=== PATIENT | female | born 1980 ===

== ENCOUNTER 2018-10-01 08:21 | Outpatient (RCR) | payer OTHER ==
[~2018-10-01 08:21] MED LIST: PRED20TA6 PO
--- NOTE | 2018-10-02 08:50 | PT INITIAL EVALUATION ---
MEDICAL DIAGNOSIS: sciatica of left spine TREATMENT DIAGNOSIS: cervical and lumbar pain DATE OF ONSET: 01/29/18 SUBJECTIVE: Daphne Wright presents to physical therapy with complaints of L UE and L LE discomfort, heaviness, and swollen feels along with muscle tension in the cervical, thoracic, and lumbar spine. From her Nurse Practicer, she reported the following: "Patient reports in January of this year, she started experiencing intermittent episodes of dizziness. For a period of time, she was just managing symptoms on her own. She felt that the dizziness was related to a cervical spine problem or muscle tension to her neck. Three months ago, she decided to be treated by a chiropractor. She was having spinal adjustments and later developed numbness of her left arm and left leg. The numbness to her left arm has improved, but the numbness to her left leg has persisted. It occurs every day. Sometimes the numbness is to her left hip, sometimes to her posterior upper leg, and sometimes to her foot. The numbness moves around. Feels unbalanced when she walks. She also had a period of blurry vision in her left eye, as well as fatigue and mental fogginess (these symptoms have since resolved). She went home to [place] in April of this year. She had a multitude of tests including an MRI of her c-spine and l-spine, which did reveal some minor bulging of discs, but the doctors did not feel like this was causing the symptoms she was experiencing. She also saw a neurologist and had an MRI of her brain completed, which was normal. She also saw an orthopedic doctor. She was treated with Voltaren pills, as well as vitamin B12 pills. She has been taking both of these medications for a few months and has experienced no relief of the numbness to her left leg. Denies any pain. She does feel like she has some continued muscle tension to her neck. No injury or trauma. No falls." Furthermore, she reports that she was prescribed prednisone with no changes. She reports that the pain/numbness is worse with standing and walking. She reports that the pain/numbness is better with sitting, bending, and lying. She was instructed by a physician in [place] that she should never perform any extension based exercises based on the CT and MRI's. She denies any pain with coughing, sneezing, or straining. Pain location is L3-5, L posterior hip, anterior groin, anterior/lateral/posterior thigh pain and described as numbness, and strain. REHAB PROBLEM LIST: Increased Pain Decreased ROM Decreased Strength Decreased Endurance Decreased Balance Decreased Function Decreased ADL's Decreased Mobility PREVIOUS MEDICAL HISTORY: See EMR OCCUPATION: OBJECTIVE: Posture: She demonstrated forward head, increased thoracic kyphosis, and decreased lumbar lordosis. ROM: Trunk AROM: flexion: NIL with pain end feel. extension: minimal restriction with pain end feel. side gliding R: minimal restriction with pain end feel. side gliding L: NIL with normal end feel. We will look at the cervical spine in the next session. Strength: L hip flexion, L hip abduction, L knee flexion, L ankle DF, and L ankle PF: 4/5 with no pain. R hip flexion, abduction, extension, B quad, R knee flexion: 5/5 with no pain. Palpation: TTP:L3-5, L posterior hip, anterior groin, anterior/lateral/posterior thigh pain We will look at the cervical spine in the next session Sensation: L2-S1 reduced on the L side versus the R side. C2-T1 reduce on the L side versus the R side. Special Tests: Repeated extension: increased pain during the test and better following the test with increased AROM as well; however, they were apprehensive to perform this exercise at home even though the results were great; therefore, we sent her home with increased flexion to see if it will expose a posterior derangement, which I am anticipating it is. Mobility: Independent Gait: She demonstrates normal gait mechanics Balance: Will test in the future ASSESSMENT: She will benefit from skilled physical therapy addressing the cervical spine and the lumbar spine as we demonstrated centralized low back pain along with increased trunk AROM in all directions following. However, she was apprehensive to perform lumbar extension based upon her physician in [place] that recommended to never perform the exercise; therefore, we sent her home with supine flexion, which more than likely will worsen symptoms to expose an posterior derangement, which I am anticipating it is based on my initial examination. She and her were independent within her specific exercise. Short Term Goals 2 weeks: Pt will demonstrate directional preference with her cervical and lumbar spine to demonstrate good prognosis for full recovery to improve return to prior level of function. 4 week: Pt will demonstrate centralized cervical and lumbar pain to improve function and QOL. 6 weeks: Pt will demonstrate abolished cervical and lumbar pain and return to prior level of function to improve QOL. Patient's Goals decreased L UE and L LE pain PLAN: Patient to be seen for Manual Therapy/STM/MET Strengthening/condition Range of Motion Spinal Stabilization Work Hardening/Cond Stretching Neuromuscular Re-ed Closed Chain Program Posture/Body mechanics Gait Trg/Balance Trg Home Exercise Program Therapeutic Activities 2x/Week for 6 Weeks If you have any questions, comments, or concerns about this report or plan, please contact me at . Thank you, Donny Schneider, PT, DPT MTDD
== END 2018-10-01 18:00 | disposition home or self-care (01) ==
LOC: PT 08:21
PROVIDERS: ATTEND Nurse Practitioner Primary Care
DX: M54.32 Sciatica, left side (principal)
CPT/HCPCS: 97163